=== PATIENT | male | born 1990 | race Asian ===

== ENCOUNTER 2017-04-20 15:31 | Emergency (ER) | payer OTHER ==
[2017-04-20] MEDS ORDERED: HYDROmorphone 1 MG/ML 1 ML SYRINGE IVP STA (15:47)
--- NOTE | 2017-04-20 15:49 | ED ---
General Adult HPI - General Chief complaint: Extremity Injury, Upper Stated complaint: dislocated left shoulder Time Seen by Provider: 04/20/17 15:42 Source: patient, RN notes reviewed Mode of arrival: ambulatory Limitations: physical limitation - History of Present Illness Initial comments: Patient is a pleasant 27-year-old male presenting to the emergency Department with left shoulder injury. Incident occurred prior to arrival. Patient was reaching while playing softball and felt his shoulder dislocate. Patient has dislocated shoulder several times before. Patient has previously been able to get himself however one time he did have to go to the hospital. No other area of injury or concern. Discomfort increases with movement. - Related Data Home Medications Medication Instructions Recorded Confirmed No Known Home Medications [No 04/20/17 04/20/17 Known Home Medications] Allergies Allergy/AdvReac Type Severity Reaction Status Date / Time No Known Allergies Allergy Verified 04/20/17 15:38 Review of Systems ROS Statement: Those systems with pertinent positive or pertinent negative responses have been documented in the HPI. ROS Other: All systems not noted in ROS Statement are negative. Constitutional: Denies: fever Eyes: Denies: eye pain ENT: Denies: ear pain Respiratory: Denies: cough Cardiovascular: Denies: chest pain Endocrine: Denies: fatigue Gastrointestinal: Denies: abdominal pain Genitourinary: Denies: urgency Musculoskeletal: Denies: back pain Skin: Denies: rash Neurological: Denies: weakness Past Medical History Past Medical History: No Reported History History of Any Multi-Drug Resistant Organisms: None Reported Past Surgical History: Orthopedic Surgery Additional Past Surgical History / Comment(s): right ankle Past Psychological History: No Psychological Hx Reported Smoking Status: Never smoker Past Alcohol Use History: Occasional Past Drug Use History: None Reported General Exam Limitations: physical limitation General appearance: alert, in no apparent distress Head exam: Present: atraumatic Eye exam: Present: normal appearance Neck exam: Present: normal inspection. Absent: tenderness Respiratory exam: Present: normal lung sounds bilaterally Cardiovascular Exam: Present: regular rate, normal rhythm GI/Abdominal exam: Present: soft. Absent: tenderness Extremities exam: Present: tenderness (Left shoulder with anterior fullness), other (Decreased range of motion left shoulder secondary to discomfort. Distally the patient is neurovascular intact.) Back exam: Absent: tenderness Neurological exam: Present: alert. Absent: motor sensory deficit Psychiatric exam: Present: normal affect, normal mood Skin exam: Present: normal color Course Vital Signs 04/20/17 04/20/17 04/20/17 15:37 16:34 16:36 Temperature 98.2 F Pulse Rate 78 77 77 Respiratory 20 69 H 18 Rate Blood Pressure 119/75 135/69 O2 Sat by Pulse 99 100 Oximetry 04/20/17 04/20/17 04/20/17 16:37 16:40 16:44 Temperature Pulse Rate 66 79 74 Respiratory 18 16 20 Rate Blood Pressure 142/89 142/73 128/75 O2 Sat by Pulse 100 100 100 Oximetry 04/20/17 04/20/17 04/20/17 16:50 16:56 16:57 Temperature Pulse Rate 60 63 65 Respiratory 18 18 16 Rate Blood Pressure 124/81 126/89 125/77 O2 Sat by Pulse 100 98 98 Oximetry Procedures - Orthopedic Joint Reduction Joint #1 Consent Obtained: verbal consent Time Out Performed: Yes Side: left Joint Reduction Location: shoulder Analgesia: procedural sedation Shoulder Technique Used (if applicable): traction/counter-traction Post-Reduction Neuro Exam: intact Post-Reduction Vascular Exam: intact Post Reduction X-Ray Obtained: Yes Post Reduction X-Ray Results: reduced Additional Comments: Patient sling reapplied post procedure. - Procedural Sedation Procedural Sedation Start Time: 16:35 Procedural Sedation Stop Time: 16:57 Indications: fracture/dislocation reduction ASA Class: I Mallampati Airway Score: 1 Preparation: cardiac nurse specialist applied, pulse oximeter, supplemental O2 applied IV Etomidate Dose (mgs): 30 Complications: none Patient Tolerated Procedure: well, no complications Medical Decision Making - Medical Decision Making Patient was updated on concern for possible Hill-Sachs deformity. - Radiology Data Radiology results: image reviewed (X-ray left shoulder shows anterior dislocation. Question Hill-Sachs deformity.) Interpreted by me: Post reduction x-ray shows good alignment. Disposition Clinical Impression: Shoulder dislocation Disposition: HOME SELF-CARE Condition: Stable Instructions: Shoulder Dislocation (ED) Additional Instructions: Please follow-up with orthopedics in the beginning of the week for follow-up. Please have orthopedics review x-rays for possible small fracture. Ice to affected area. Limit use of shoulder until released by orthopedics, use sling. Return for increased pain, weakness, worsening symptoms or other concerns. [id number] Tylenol or Motrin as needed. Referrals: Mike Bryant MD [Medical Doctor] - 1-2 days Time of Disposition: 17:01
--- NOTE | 2017-04-20 16:15 | XR ---
EXAMINATION TYPE: XR shoulder complete LT DATE OF EXAM: 04/20/2017 COMPARISON: NONE HISTORY: 27-year-old male left shoulder dislocation, pain TECHNIQUE: Reviews FINDINGS: AC joint is congruent and intact. There is an anterior subcoracoid glenohumeral joint dislocation. A small Hill-Sachs deformity may be present. No definite bony Bankart fragment. Visualized left thorax is clear. IMPRESSION: Anterior subcoracoid glenohumeral joint dislocation. A small Hill-Sachs impaction injury is suspected .
[2017-04-20] MEDS ORDERED: ETOMIDATE 2 MG/ML 10 ML VIAL IVP STA (16:17)
--- NOTE | 2017-04-20 16:52 | XR ---
EXAMINATION TYPE: XR shoulder limited LT DATE OF EXAM: 04/20/2017 COMPARISON: Earlier today HISTORY: 27-year-old male pain, post reduction TECHNIQUE: Single AP view FINDINGS: Interval satisfactory reduction of the glenohumeral joint. No acute fracture seen. The degree rotatio n may limit visualization of a potential Hill-Sachs deformity. IMPRESSION: Interval satisfactory reduction of the GH joint.
[2017-04-20 17:39] VITALS: BP 108/70; PULSE 66; RESP 18; TEMP 97.6
== END 2017-04-20 17:39 | disposition home or self-care (01) ==
LOC: EC 15:31
DX: S43.005A Unspecified dislocation of left shoulder joint, initial encounter (principal); X58.XXXA Exposure to other specified factors, initial encounter; Y93.68 Activity, volleyball (beach) (court); Y92.89 Other specified places as the place of occurrence of the external cause
CPT/HCPCS: 99283 ×2; 23650 ×2; 99152 ×2; 96374 ×2; 73030; 73020; J1170